=== PATIENT | female | born 1985 | race Caucasian/White ===

== ENCOUNTER 2017-11-26 16:12 | Emergency (ER) | payer OTHER ==
[~2017-11-26] VITALS: Ht 157.5 cm; Wt 81.7 kg
[~2017-11-26 16:12] MED LIST: ACET325 PO; ALBU90OI INH; AMOCLA500 PO; AMOCLA875 PO; AMOX1XR PO; AMOX500 PO; AMPDEX10 PO; AZIT250 PO; Amoxicillin500 MG PO; BENZ100A PO; Benadryl 50 mg50 MG PO; CEPH500; CEPH500 PO; CIPR500 PO; CLON.1 PO; CODACE30 PO; CODGUAEL PO; CYCL10 PO; Cleocin HCl300 MG PO; DEXT10ER PO; DIPH25 PO; DOCU100 PO; DOXY100 PO; ENOX60I SC; FLUR100; HYDACE5 PO; HYDACE5325 PO; HYDHCL25 PO; HYDMOR2 PO; IBUHYD PO; IBUP600 PO; IBUP800 PO; KETO10 PO; LORA2 PO; MAGIC MOUTHWASH; MULVITMINE; NAPR550 PO; ONDA4 PO; OXYACE5T PO; OXYACE7.5T PO; OXYC5 PO; PENVK500 PO; PHENA200 PO; PRED20 PO; PRENATAL FORMU1 EAC1 PO; PROC10 PO; PROM25 PO; PROP10 PO; Pseudoephedrine30 MG PO; RXLORA1 PO; RXNAPNA550 PO; SERT100 PO; SERT50; SULTRIDS PO; TAMS.4ER PO; WARF2 PO; WARF5 PO; Zithromax250 MG PO
[2017-11-26] MEDS ORDERED: IBUP800 (16:34)
[2017-11-26 16:54] LABS: Source, Urine Clean Catch
[2017-11-26 17:16] LABS: Appearance, Urine Clear (Clear); Bilirubin, Urine Neg (Neg); Blood, Urine Neg (Neg); Color, Urine Yellow (P-Yellow); Glucose Qualitative, Urine Neg (Neg); Ketones, Urine Neg (Neg); Leukocyte Esterase, Urine Neg (Neg); Nitrite, Urine Neg (Neg); Protein, Urine 1+ (Neg); Specific Gravity, Urine 1.015 (1.003-1.022); Urobilinogen, Urine NORM (Normal); pH, Urine 6.5 (5.0-8.0)
[2017-11-26 17:27] LABS: BASOPHILS ABSOLUTE AUTO 0.02 K/mm3 (0.00-0.23); BASOPHILS PERCENT AUTO 0 % (0-2); EOSINOPHILS PERCENT AUTO 4 % (0-6); Hematocrit 44.9 % (33.0-51.0); Hemoglobin 15.5 g/dL (11.5-16.0); IMMATURE GRAN ABSOLUTE AUTO 0.03 K/mm3 (0.00-0.10); IMMATURE GRAN PERCENT AUTO 0 % (0-1); LYMPHOCYTES PERCENT AUTO 24 % (21-46); MONOCYTES PERCENT AUTO 6 % (4-13); Mean Corpuscular HGB 33.3 pg (26.0-34.0); Mean Corpuscular HGB Conc 34.5 g/dL (31.5-36.5); Mean Corpuscular Volume 97 fL (80-100); Mean Platelet Volume 10.3 fL (9.1-12.4); NEUTROPHILS ABSOLUTE AUTO 5.23 K/mm3 (1.96-9.15); NEUTROPHILS PERCENT AUTO 65 % (41-73); Platelet Count 186 K/mm3 (150-400); RDW Coefficient Variation 12.6 % (11.7-14.2); RDW Standard Deviation 44.8 fL (35.1-46.3); Red Blood Cell Count 4.65 M/mm3 (3.80-5.20); White Blood Cell Count 7.98 K/mm3 (4.00-11.30)
[2017-11-26 17:42] LABS: Alanine Aminotransfer (ALT/SGP 69 U/L (12-78); Albumin, Blood 3.7 g/dL (3.4-5.0); Albumin/Globulin Ratio 0.8 (0.8-1.8); Alk Phos 154 U/L (50-136); Anion Gap 11 mmol/L (6-16); Aspartate Aminotrans (AST/SGOT 76 U/L (12-37); Bilirubin, Total 0.7 mg/dL (0.1-1.0); Blood Urea Nitrogen 12 mg/dL (8-24); Bun/Creatinine Ratio 20.6 (12.0-20.0); CO2, Blood 25 mmol/L (21-32); Chloride, Blood 105 mmol/L (98-108); Creatinine, Blood 0.58 mg/dL (0.40-1.00); Globulin, Blood 4.9 g/dL (2.2-4.0); Glomerular Filtration Rate >60 (60-); Glucose, Blood 87 mg/dL (70-99); Potassium, Blood 3.4 mmol/L (3.5-5.5); Sodium, Blood 141 mmol/L (136-145); Total Protein, Blood 8.6 g/dL (6.4-8.2)
[2017-11-26] MEDS ORDERED: Ultram50 MG PO (19:39)
[2017-11-26] MEDS ORDERED: IBUP800 PO (19:39)
== END 2017-11-26 20:00 | disposition home or self-care (01) ==
LOC: ER 16:12
PROVIDERS: Emergency Medicine; Physician Assistant
DX: N83.202 Unspecified ovarian cyst, left side (principal); Z79.891 Long term (current) use of opiate analgesic; Z87.442 Personal history of urinary calculi; F17.210 Nicotine dependence, cigarettes, uncomplicated
CPT/HCPCS: 36415; 76830; 76856; 80053; 81025; 84703; 85025; 96374; 96375; 99284; J1885; J2405

== ENCOUNTER → 2018-01-04 | Outpatient (CLI) | payer OTHER ==
[~2018-01-04] MED LIST changes: +IBUP800; +Ultram50 MG PO
== END ==
LOC: LAB SHORT 17:16 → LAB 17:16
DX: N89.8 Other specified noninflammatory disorders of vagina (principal)
CPT/HCPCS: 87070; 87205

== ENCOUNTER → 2018-01-12 | Outpatient (CLI) | payer OTHER ==
[2018-01-16 12:22] LABS: HPV Genotype 16 Not Detected (NOTDET); HPV Genotype 18 Not Detected (NOTDET)
[2018-01-22 08:44] LABS: HPV High Risk Other Not Detected (NOTDET)
[2018-01-23 07:09] LABS: Source CERVICAL
== END ==
LOC: LAB 16:39 → LAB SHORT 16:39
PROVIDERS: Registered Nurse Community Health
DX: Z12.4 Encounter for screening for malignant neoplasm of cervix (principal)
CPT/HCPCS: 87624; G0123

== ENCOUNTER 2018-01-13 13:09 | Emergency (ER) | payer OTHER ==
[~2018-01-13] VITALS: Ht 157.5 cm; Wt 86.2 kg
== END 2018-01-13 14:58 | disposition left against medical advice (07) ==
LOC: ER 13:09
DX: Z53.21 Procedure and treatment not carried out due to patient leaving prior to being seen by health care provider (principal)

== ENCOUNTER 2018-02-04 10:42 | Emergency (ER) | payer OTHER ==
[~2018-02-04] VITALS: Ht 157.5 cm; Wt 83.9 kg
[2018-02-04 11:59] LABS: BASOPHILS ABSOLUTE AUTO 0.02 K/mm3 (0.00-0.23); BASOPHILS PERCENT AUTO 0 % (0-2); EOSINOPHILS ABSOLUTE AUTO 0.35 K/mm3 (0.00-0.68); EOSINOPHILS PERCENT AUTO 5 % (0-6); Hematocrit 43.2 % (33.0-51.0); Hemoglobin 14.8 g/dL (11.5-16.0); IMMATURE GRAN ABSOLUTE AUTO 0.02 K/mm3 (0.00-0.10); IMMATURE GRAN PERCENT AUTO 0 % (0-1); LYMPHOCYTES ABSOLUTE AUTO 1.33 K/mm3 (0.84-5.20); LYMPHOCYTES PERCENT AUTO 20 % (21-46); MONOCYTES ABSOLUTE AUTO 0.42 K/mm3 (0.16-1.47); MONOCYTES PERCENT AUTO 6 % (4-13); Mean Corpuscular HGB 33.4 pg (26.0-34.0); Mean Corpuscular HGB Conc 34.3 g/dL (31.5-36.5); Mean Corpuscular Volume 98 fL (80-100); Mean Platelet Volume 10.1 fL (9.1-12.4); NEUTROPHILS ABSOLUTE AUTO 4.68 K/mm3 (1.96-9.15); NEUTROPHILS PERCENT AUTO 69 % (41-73); Platelet Count 199 K/mm3 (150-400); RDW Coefficient Variation 12.3 % (11.7-14.2); RDW Standard Deviation 44.8 fL (35.1-46.3); Red Blood Cell Count 4.43 M/mm3 (3.80-5.20); White Blood Cell Count 6.82 K/mm3 (4.00-11.30)
[2018-02-04 12:00] LABS: Appearance, Urine Cloudy (Clear); Bilirubin, Urine Neg (Neg); Blood, Urine 5+ (Neg); Color, Urine Amber (P-Yellow); Glucose Qualitative, Urine Neg (Neg); Ketones, Urine Neg (Neg); Leukocyte Esterase, Urine 1+ (Neg); Nitrite, Urine Neg (Neg); Protein, Urine 2+ (Neg); Urobilinogen, Urine 2+ (Normal)
[2018-02-04 12:10] LABS: Red Blood Cells, Urine TNTC /hpf (0-2)
[2018-02-04 12:11] LABS: Amorphous Light (0-Heavy); Bacteria Many /hpf; Squamous Epithelial Cells Few /hpf (Few)
[2018-02-04 12:18] LABS: Alanine Aminotransfer (ALT/SGP 67 U/L (12-78); Albumin, Blood 3.2 g/dL (3.4-5.0); Albumin/Globulin Ratio 0.7 (0.8-1.8); Alk Phos 107 U/L (50-136); Anion Gap 3 mmol/L (6-16); Aspartate Aminotrans (AST/SGOT 76 U/L (12-37); Bilirubin, Total 0.8 mg/dL (0.1-1.0); Blood Urea Nitrogen 11 mg/dL (8-24); Bun/Creatinine Ratio 17.8 (12.0-20.0); CO2, Blood 30 mmol/L (21-32); Calcium, Blood 8.8 mg/dL (8.5-10.1); Chloride, Blood 108 mmol/L (98-108); Creatinine, Blood 0.62 mg/dL (0.40-1.00); Globulin, Blood 4.5 g/dL (2.2-4.0); Glomerular Filtration Rate >60 (60-); Glucose, Blood 129 mg/dL (70-99); Sodium, Blood 141 mmol/L (136-145); Total Protein, Blood 7.7 g/dL (6.4-8.2)
== END 2018-02-04 12:05 | disposition left against medical advice (07) ==
LOC: ER 10:42
PROVIDERS: Emergency Medicine
DX: Z53.21 Procedure and treatment not carried out due to patient leaving prior to being seen by health care provider (principal)
CPT/HCPCS: 36415; 80053; 81001; 81025; 83690; 85025; 87086; 99283; J2405

== ENCOUNTER → 2018-03-30 | Outpatient (CLI) | payer OTHER ==
[2018-04-04 01:12] LABS: CHLAMYDIA TRACHOMATIS, NAA Negative (Negative); NEISSERIA GONORRHOEAE, NAA Negative (Negative)
== END ==
LOC: LAB SHORT 18:45 → LAB 18:45
PROVIDERS: Registered Nurse Community Health
DX: Z11.3 Encounter for screening for infections with a predominantly sexual mode of transmission (principal); Z34.81 Encounter for supervision of other normal pregnancy, first trimester
CPT/HCPCS: 87491; 87591

== ENCOUNTER → 2018-05-23 | Outpatient (CLI) | payer OTHER ==
[2018-05-23 20:00] LABS: International Normalized Ratio 1.01; Prothrombin Time Results 10.4 Sec (9.7-11.5)
== END ==
LOC: LAB SHORT 17:11 → LAB 17:11
PROVIDERS: Registered Nurse Community Health
DX: Z34.82 Encounter for supervision of other normal pregnancy, second trimester (principal)
CPT/HCPCS: 85610

== ENCOUNTER → 2018-10-12 | Outpatient (CLI) | payer OTHER ==
[~2018-10-12] MED LIST changes: +ENOX40I SC; +PRENATAL TABLE1 EAC1 PO
== END ==
LOC: LAB SHORT 11:00 → LAB 11:00
DX: O9A.22 Injury, poisoning and certain other consequences of external causes complicating childbirth (principal); T14.8XXA Other injury of unspecified body region, initial encounter
CPT/HCPCS: 87070; 87075; 87081; 87205; 87653

== ENCOUNTER 2018-10-17 19:13 | Inpatient (IN) | payer OTHER ==
[~2018-10-17] VITALS: Ht 157.5 cm; Wt 90.9 kg
[~2018-10-17 19:13] MED LIST changes: -ENOX40I SC; -PRENATAL TABLE1 EAC1 PO
[2018-10-17 19:42] LABS: Source, Urine Clean Catch
[2018-10-17 19:46] LABS: Bilirubin, Urine Neg (Neg); Blood, Urine 5+ (Neg); Glucose Qualitative, Urine Neg (Neg); Ketones, Urine Neg (Neg); Leukocyte Esterase, Urine 2+ (Neg); Nitrite, Urine Neg (Neg); Protein, Urine 2+ (Neg); Urobilinogen, Urine NORM (Normal); pH, Urine 6.5 (5.0-8.0)
[2018-10-17 19:51] LABS: Appearance, Urine Hazy (Clear); Color, Urine Yellow (P-Yellow)
[2018-10-17 19:52] LABS: Red Blood Cells, Urine 25-50 /hpf (0-2); Squamous Epithelial Cells Mod /hpf (Few)
[2018-10-17 19:53] LABS: Bacteria Few /hpf
[2018-10-17 22:34] LABS: BASOPHILS ABSOLUTE AUTO 0.02 K/mm3 (0.00-0.23); BASOPHILS PERCENT AUTO 0 % (0-2); EOSINOPHILS ABSOLUTE AUTO 0.13 K/mm3 (0.00-0.68); EOSINOPHILS PERCENT AUTO 1 % (0-6); Hematocrit 42.8 % (33.0-51.0); Hemoglobin 14.9 g/dL (11.5-16.0); IMMATURE GRAN ABSOLUTE AUTO 0.11 K/mm3 (0.00-0.10); IMMATURE GRAN PERCENT AUTO 1 % (0-1); LYMPHOCYTES ABSOLUTE AUTO 1.11 K/mm3 (0.84-5.20); LYMPHOCYTES PERCENT AUTO 10 % (21-46); MONOCYTES ABSOLUTE AUTO 0.67 K/mm3 (0.16-1.47); MONOCYTES PERCENT AUTO 6 % (4-13); Mean Corpuscular HGB 36.8 pg (26.0-34.0); Mean Corpuscular HGB Conc 34.8 g/dL (31.5-36.5); Mean Corpuscular Volume 106 fL (80-100); Mean Platelet Volume 10.2 fL (9.1-12.4); NEUTROPHILS ABSOLUTE AUTO 9.28 K/mm3 (1.96-9.15); NEUTROPHILS PERCENT AUTO 82 % (41-73); Platelet Count 180 K/mm3 (150-400); RDW Coefficient Variation 14.1 % (11.7-14.2); RDW Standard Deviation 54.1 fL (35.1-46.3); Red Blood Cell Count 4.05 M/mm3 (3.80-5.20); White Blood Cell Count 11.32 K/mm3 (4.00-11.30)
[2018-10-17 22:36] LABS: International Normalized Ratio 1.01; Prothrombin Time Results 10.4 Sec (9.7-11.5)
--- NOTE | 2018-10-18 00:07 | NUR ---
REPORT TO ALMA RUANO.
[2018-10-18 05:30] LABS: BASOPHILS ABSOLUTE AUTO 0.04 K/mm3 (0.00-0.23); BASOPHILS PERCENT AUTO 0 % (0-2); EOSINOPHILS ABSOLUTE AUTO 0.03 K/mm3 (0.00-0.68); EOSINOPHILS PERCENT AUTO 0 % (0-6); Hematocrit 36.8 % (33.0-51.0); Hemoglobin 12.4 g/dL (11.5-16.0); IMMATURE GRAN ABSOLUTE AUTO 0.13 K/mm3 (0.00-0.10); IMMATURE GRAN PERCENT AUTO 1 % (0-1); LYMPHOCYTES ABSOLUTE AUTO 1.17 K/mm3 (0.84-5.20); LYMPHOCYTES PERCENT AUTO 7 % (21-46); MONOCYTES ABSOLUTE AUTO 1.02 K/mm3 (0.16-1.47); MONOCYTES PERCENT AUTO 6 % (4-13); Mean Corpuscular HGB 35.8 pg (26.0-34.0); Mean Corpuscular HGB Conc 33.7 g/dL (31.5-36.5); Mean Corpuscular Volume 106 fL (80-100); Mean Platelet Volume 10.5 fL (9.1-12.4); NEUTROPHILS ABSOLUTE AUTO 14.92 K/mm3 (1.96-9.15); NEUTROPHILS PERCENT AUTO 86 % (41-73); Platelet Count 166 K/mm3 (150-400); RDW Coefficient Variation 14.2 % (11.7-14.2); RDW Standard Deviation 54.7 fL (35.1-46.3); Red Blood Cell Count 3.46 M/mm3 (3.80-5.20); White Blood Cell Count 17.31 K/mm3 (4.00-11.30)
--- NOTE | 2018-10-18 14:07 | NUR ---
PT CALLS RN TO THE ROOM WITH C/O LEFT LOWER QUADRANT PAIN. RECENT N/V AND EMESIS, PAIN IN CALVES, TINGLING DOWN BOTH LEGS, REPORTS MILD UPPER EPIGASTRIC DISCOMFORT AND NOW SAYS SHE FEELS S.O.B. DISCUSSED SORE MUSCLES FROM LABOR AND NOW FROM EMESIS. DISCUSSED LOW FAT DIET EVEN THOUHG PATIENT HAS BEEN EATING HIGH FATTY FOODS. HARDIN'S TEST DONE, PT DENIES PAIN IN HER CALF BUT REPORTS PAIN IN LEFT KNEE WITH TEST. FOAM PAD PUT ON BED TO RELIEVE BACK PAIN AND LEG PAIN. UPDATE TO Tejinder CONTEH CNM.
--- NOTE | 2018-10-18 14:46 | NUR ---
PT AWAKENS FROM A SHORT NAP WITH REPORT OF 0 PAIN, STATES "i FEEL SO MUCH BETTER". BABY REMAINS WITH NURSES AND PT ENCOURAGED TO REST. PT DESIRES TO TRY TO SLEEP MORE.
--- NOTE | 2018-10-18 17:11 | NUR ---
OOB TO SHOWER
--- NOTE | 2018-10-18 17:41 | NUR ---
PT R/T ROOM FROM AMBULATING IN THE HALLS. REPORTS EXPLOSIVE DIARREAH AND EMESIS. CONCERNED SHE HAS THE FLU. NO CHILLS OR FEVER NOTED. DISCUSSED POSSIBLE S/S OF GALLBLADDER PROBLEMS. PRINTED OFF INFORMATION ABOUT GALLBLADDER S/S, WHAT TO WATCH FOR, WHAT FOODS TO AVOID.
[2018-10-19 06:04] LABS: Alanine Aminotransfer (ALT/SGP 91 U/L (12-78); Albumin, Blood 2.5 g/dL (3.4-5.0); Albumin/Globulin Ratio 0.7 (0.8-1.8); Alk Phos 140 U/L (50-136); Anion Gap 8 mmol/L (6-16); Aspartate Aminotrans (AST/SGOT 107 U/L (12-37); Bilirubin, Total 0.8 mg/dL (0.1-1.0); Blood Urea Nitrogen 17 mg/dL (8-24); Bun/Creatinine Ratio 26.2 (12.0-20.0); CO2, Blood 21 mmol/L (21-32); Calcium, Blood 7.5 mg/dL (8.5-10.1); Chloride, Blood 111 mmol/L (98-108); Creatinine, Blood 0.65 mg/dL (0.40-1.00); Globulin, Blood 3.7 g/dL (2.2-4.0); Glomerular Filtration Rate >60 (60-); Glucose, Blood 93 mg/dL (70-99); Potassium, Blood 3.9 mmol/L (3.5-5.5); Sodium, Blood 140 mmol/L (136-145); Total Protein, Blood 6.2 g/dL (6.4-8.2)
[2018-10-19] MEDS ORDERED: IBUP800 PO (13:09)
[2018-10-19] MEDS ORDERED: ENOX40I SC (13:09)
[2018-10-19] MEDS ORDERED: PRENATAL TABLE1 EAC1 PO (13:09)
--- NOTE | 2018-10-19 14:22 | NUR ---
script were called in to [facility] pharmacy at 1349 to radha. reports will be ready in 2 hours
--- NOTE | 2018-10-19 14:23 | NUR ---
ready to dc home, following up with tim landaverde in [address] paige was here to see pt will follow up with him in 2-4 weeks, plan to remove pt gallbladder after pt is off her lovenox.
== END 2018-10-19 14:40 | disposition home or self-care (01) | DRG 807 ==
LOC: OBS 19:13 → BC 19:13 → OBS 21:41 → BC 21:43
PROVIDERS: ADMIT Registered Nurse Community Health
PROC: 10E0XZZ Delivery of Products of Conception, External Approach (ICD-10-PCS; principal; 2018-10-17)
DX: O80 Encounter for full-term uncomplicated delivery (principal); Z37.0 Single live birth; Z3A.37 37 weeks gestation of pregnancy
CPT/HCPCS: 36415; 76705; 80053; 81001; 85025; 85610; 85730; 86850; 86900; 86901; J1650; J1885; J2210; J2405; J2590; J3010; J7120

== ENCOUNTER → 2018-10-17 | Outpatient (CLI) | payer OTHER | LOC: LAB 11:40 → LAB SHORT 11:40 | DX: R82.998 Other abnormal findings in urine (principal) | CPT/HCPCS: 87086 ==

== ENCOUNTER → 2018-11-23 | Outpatient (CLI) | payer OTHER ==
[~2018-11-23] MED LIST changes: +ENOX40I SC; +PRENATAL TABLE1 EAC1 PO
== END ==
LOC: LAB 12:25 → LAB SHORT 12:25
DX: L72.3 Sebaceous cyst (principal)
CPT/HCPCS: 87070; 87205

== ENCOUNTER 2018-11-29 21:14 | Emergency (ER) | payer OTHER ==
[~2018-11-29] VITALS: Ht 157.5 cm; Wt 81.7 kg
[2018-11-29 21:48] LABS: BASOPHILS ABSOLUTE AUTO 0.03 K/mm3 (0.00-0.23); BASOPHILS PERCENT AUTO 0 % (0-2); EOSINOPHILS ABSOLUTE AUTO 0.34 K/mm3 (0.00-0.68); EOSINOPHILS PERCENT AUTO 5 % (0-6); Hematocrit 41.6 % (33.0-51.0); Hemoglobin 14.3 g/dL (11.5-16.0); IMMATURE GRAN ABSOLUTE AUTO 0.02 K/mm3 (0.00-0.10); IMMATURE GRAN PERCENT AUTO 0 % (0-1); LYMPHOCYTES ABSOLUTE AUTO 1.75 K/mm3 (0.84-5.20); LYMPHOCYTES PERCENT AUTO 24 % (21-46); MONOCYTES ABSOLUTE AUTO 0.47 K/mm3 (0.16-1.47); MONOCYTES PERCENT AUTO 7 % (4-13); Mean Corpuscular HGB Conc 34.4 g/dL (31.5-36.5); Mean Corpuscular Volume 102 fL (80-100); Mean Platelet Volume 9.8 fL (9.1-12.4); NEUTROPHILS ABSOLUTE AUTO 4.59 K/mm3 (1.96-9.15); NEUTROPHILS PERCENT AUTO 64 % (41-73); Platelet Count 174 K/mm3 (150-400); RDW Coefficient Variation 11.8 % (11.7-14.2); RDW Standard Deviation 43.8 fL (35.1-46.3); Red Blood Cell Count 4.08 M/mm3 (3.80-5.20)
[2018-11-29 22:12] LABS: Alanine Aminotransfer (ALT/SGP 82 U/L (12-78); Albumin, Blood 3.4 g/dL (3.4-5.0); Albumin/Globulin Ratio 0.7 (0.8-1.8); Alk Phos 158 U/L (50-136); Anion Gap 6 mmol/L (6-16); Aspartate Aminotrans (AST/SGOT 75 U/L (12-37); Bilirubin, Total 0.6 mg/dL (0.1-1.0); Blood Urea Nitrogen 14 mg/dL (8-24); Bun/Creatinine Ratio 20.6 (12.0-20.0); CO2, Blood 28 mmol/L (21-32); Calcium, Blood 8.6 mg/dL (8.5-10.1); Chloride, Blood 106 mmol/L (98-108); Creatinine, Blood 0.68 mg/dL (0.40-1.00); Globulin, Blood 4.6 g/dL (2.2-4.0); Glomerular Filtration Rate >60 (60-); Glucose, Blood 87 mg/dL (70-99); Potassium, Blood 3.6 mmol/L (3.5-5.5); Sodium, Blood 140 mmol/L (136-145)
== END 2018-11-29 22:46 | disposition left against medical advice (07) ==
LOC: ER 21:14
PROVIDERS: Emergency Medicine
DX: Z53.21 Procedure and treatment not carried out due to patient leaving prior to being seen by health care provider (principal)
CPT/HCPCS: 36415; 80053; 85025; 86900; 86901; 99281

== ENCOUNTER → 2019-08-08 | Outpatient (CLI) | payer OTHER | END | disposition home or self-care (01) | LOC: LAB SHORT 11:35 → LAB EV 11:35 | DX: L03.211 Cellulitis of face (principal) | CPT/HCPCS: 87070; 87205 ==

== ENCOUNTER 2020-06-21 06:23 | Emergency (ER) | payer OTHER | END 2020-06-21 07:15 | disposition left against medical advice (07) | LOC: ER 06:23 | DX: Z53.21 Procedure and treatment not carried out due to patient leaving prior to being seen by health care provider (principal) ==

== ENCOUNTER 2020-10-14 09:10 | Emergency (ER) | payer OTHER | END 2020-10-14 10:18 | disposition left against medical advice (07) | LOC: ER 09:10 | DX: Z53.21 Procedure and treatment not carried out due to patient leaving prior to being seen by health care provider (principal) ==

== ENCOUNTER 2021-03-02 01:09 | Emergency (ER) | payer OTHER ==
[~2021-03-02] VITALS: Ht 154.9 cm; Wt 74.8 kg
[2021-03-02] MEDS ORDERED: SUBOXONE 8 MG-1 EACH SL (02:53)
[2021-03-02] MEDS ORDERED: Cleocin HCl300 MG PO (04:01)
== END 2021-03-02 04:09 | disposition home or self-care (01) ==
LOC: ER 01:09
DX: N76.4 Abscess of vulva (principal); F17.210 Nicotine dependence, cigarettes, uncomplicated; Z87.442 Personal history of urinary calculi
CPT/HCPCS: 56405; 99283-25; A9270

== ENCOUNTER 2021-04-07 19:45 | Emergency (ER) | payer OTHER ==
[~2021-04-07] VITALS: Ht 154.9 cm; Wt 68.0 kg
[~2021-04-07 19:45] MED LIST changes: +SUBOXONE 8 MG-1 EACH SL
== END 2021-04-08 00:55 | disposition left against medical advice (07) ==
LOC: ER 19:45
DX: M79.89 Other specified soft tissue disorders (principal); Z53.21 Procedure and treatment not carried out due to patient leaving prior to being seen by health care provider
CPT/HCPCS: 99282

== ENCOUNTER → 2021-04-08 | Outpatient (CLI) | payer OTHER ==
[2021-04-10 07:13] LABS: HIV SCREEN 4TH GENERATION WRFX Non Reactive (Non Reactive)
== END ==
LOC: EDSTATUS 14:08 → LAB 21:36 → LAB SHORT 21:36
PROVIDERS: Physician Assistant
DX: N39.0 Urinary tract infection, site not specified (principal)
CPT/HCPCS: 87086; 87389

== ENCOUNTER 2021-04-10 19:12 | Emergency (ER) | payer OTHER ==
[~2021-04-10] VITALS: Ht 160 cm; Wt 68.0 kg
[2021-04-10 20:47] LABS: Hemoglobin 11.1 g/dL (11.5-16.0); Mean Corpuscular HGB 33.4 pg (26.0-34.0); Mean Corpuscular HGB Conc 34.7 g/dL (31.5-36.5); Mean Corpuscular Volume 96 fL (80-100); Mean Platelet Volume 10.8 fL (9.1-12.4); Platelet Count 70 K/mm3 (150-400); RDW Coefficient Variation 13.9 % (11.7-14.2); RDW Standard Deviation 49.6 fL (35.1-46.3); Red Blood Cell Count 3.32 M/mm3 (3.80-5.20); White Blood Cell Count 5.83 K/mm3 (4.00-11.30)
[2021-04-10 21:06] LABS: Alanine Aminotransfer (ALT/SGP 43 U/L (12-78); Albumin, Blood 2.4 g/dL (3.4-5.0); Albumin/Globulin Ratio 0.5 (0.8-1.8); Alk Phos 144 U/L (50-136); Anion Gap 6 mmol/L (6-16); Aspartate Aminotrans (AST/SGOT 45 U/L (12-37); Bilirubin, Total 1.4 mg/dL (0.1-1.0); Blood Urea Nitrogen 9 mg/dL (8-24); Bun/Creatinine Ratio 17.8 (12.0-20.0); CO2, Blood 22 mmol/L (21-32); CPK Creatine Kinase 29 U/L (26-193); Chloride, Blood 104 mmol/L (98-108); Creatinine, Blood 0.51 mg/dL (0.40-1.00); Globulin, Blood 4.8 g/dL (2.2-4.0); Glomerular Filtration Rate >60 (60-); Glucose, Blood 162 mg/dL (70-99); Potassium, Blood 3.6 mmol/L (3.5-5.5); Sodium, Blood 132 mmol/L (136-145); Total Protein, Blood 7.2 g/dL (6.4-8.2)
[2021-04-10 21:11] LABS: BAND PERCENT MAN 13 % (0-8); BASOPHILS ABSOLUTE MAN 0.05 K/mm3 (0.00-0.23); BASOPHILS PERCENT MAN 1 % (0-2); EOSINOPHILS ABSOLUTE MAN 0.05 K/mm3 (0.00-0.68); EOSINOPHILS PERCENT MAN 1 % (0-6); LYMPHOCYTES % ATYPICAL MANUAL 2 % (0-0); LYMPHOCYTES ABSOLUTE MAN 0.58 K/mm3 (0.84-5.20); LYMPHOCYTES PERCENT MAN 8 % (21-46); METAMYELOCYTE ABSOLUTE MAN 0.05 K/mm3 (0.00-0.00); METAMYELOCYTE PERCENT MAN 1 % (0-0); MONOCYTES ABSOLUTE MAN 0.11 K/mm3 (0.16-1.47); MONOCYTES PERCENT MAN 2 % (4-13); NEUTROPHILS ABSOLUTE MAN 4.95 K/mm3 (1.96-9.15); SEG NEUTROPHILS PERCENT MAN 72 % (41-73); TOTAL CELLS COUNTED 100
[2021-04-10 21:23] LABS: U Amphetamine Screen DETECTED; U Buprenorphine Screen Not Detected; U Cannabinoids Screen DETECTED; U Methadone Screen Not Detected; U Methamphetamine Screen DETECTED; U Opiates Screen DETECTED; U Oxycodone Screen Not Detected; U Phencyclidine Screen Not Detected; U Propoxyphene Screen Not Detected
[2021-04-10 21:24] LABS: U Barbituate Screen Not Detected; U Benzodiazapine Screen Not Detected; U Cocaine Screen Not Detected
== END 2021-04-10 22:09 | disposition home or self-care (01) ==
LOC: ER 19:12
PROVIDERS: Emergency Medicine
DX: M25.511 Pain in right shoulder (principal); F15.10 Other stimulant abuse, uncomplicated; F17.210 Nicotine dependence, cigarettes, uncomplicated
CPT/HCPCS: 36415; 73030; 80053; 82550; 85025; 96374; 99284-25; J1885

== ENCOUNTER → 2021-04-14 | Outpatient (CLI) | payer OTHER | END | disposition home or self-care (01) | LOC: LAB 15:01 → LAB SHORT 15:01 | DX: M25.511 Pain in right shoulder (principal); L02.413 Cutaneous abscess of right upper limb | CPT/HCPCS: 87070; 87075; 87077; 87147; 87186; 87205 ==

== ENCOUNTER 2022-12-26 06:04 | Emergency (ER) | payer OTHER ==
[~2022-12-26] VITALS: Ht 152.4 cm; Wt 59.0 kg
[~2022-12-26 06:04] MED LIST changes: +Ativan1 MG PO; +BUPRENO-NALOX1 EAC2 SL; +CATAPRES0.1 MG PO; +Lasix20 MG PO; +NARCAN4 M1; +NEURONTIN300 MG PO; +POTCHL20ER PO
[2022-12-26 06:53] LABS: BASOPHILS ABSOLUTE AUTO 0.03 K/mm3 (0.00-0.23); BASOPHILS PERCENT AUTO 1 % (0-2); EOSINOPHILS PERCENT AUTO 4 % (0-6); Hematocrit 27.5 % (33.0-51.0); Hemoglobin 9.8 g/dL (11.5-16.0); IMMATURE GRAN ABSOLUTE AUTO 0.01 K/mm3 (0.00-0.10); IMMATURE GRAN PERCENT AUTO 0 % (0-1); LYMPHOCYTES ABSOLUTE AUTO 1.49 K/mm3 (0.84-5.20); LYMPHOCYTES PERCENT AUTO 31 % (21-46); MONOCYTES PERCENT AUTO 10 % (4-13); Mean Corpuscular HGB 34.1 pg (26.0-34.0); Mean Corpuscular HGB Conc 35.6 g/dL (31.5-36.5); Mean Corpuscular Volume 96 fL (80-100); Mean Platelet Volume 10.4 fL (9.1-12.4); NEUTROPHILS ABSOLUTE AUTO 2.61 K/mm3 (1.96-9.15); NEUTROPHILS PERCENT AUTO 54 % (41-73); Platelet Count 66 K/mm3 (150-400); RDW Coefficient Variation 14.7 % (11.7-14.2); RDW Standard Deviation 51.2 fL (35.1-46.3); Red Blood Cell Count 2.87 M/mm3 (3.80-5.20); White Blood Cell Count 4.84 K/mm3 (4.00-11.30)
[2022-12-26 07:22] LABS: Albumin, Blood 2.1 g/dL (3.4-5.0); Albumin/Globulin Ratio 0.4 (0.8-1.8); Bilirubin, Total 2.3 mg/dL (0.1-1.0); Bun/Creatinine Ratio 25.4 (12.0-20.0); Calcium, Blood 8.2 mg/dL (8.5-10.1); Creatinine, Blood 0.79 mg/dL (0.40-1.00); Potassium, Blood 2.4 mmol/L (3.5-5.5); Total Protein, Blood 7.1 g/dL (6.4-8.2)
[2022-12-26 10:20] LABS: Chloride (POC) 95 mmol/L (98-108); Creatinine (POC) 0.8 mg/dL (0.6-1.0); Glucose (ISTAT POC) 94 mg/dL (70-99); Hemoglobin (POC) 11.2 g/dL (12.0-16.0); Potassium (POC) 2.9 mmol/L (3.5-5.5); Sodium (POC) 138 mmol/L (135-148); Total CO2 (POC) 30 mmol/L (21-32)
[2022-12-26] MEDS ORDERED: NALOXONE HC1 MG/1 ML IV (10:32)
[2022-12-26] MEDS ORDERED: POTCHL20ER PO (10:32)
== END 2022-12-26 10:35 | disposition home or self-care (01) ==
LOC: ER 06:04
PROVIDERS: Emergency Medicine
DX: T40.411A Poisoning by fentanyl or fentanyl analogs, accidental (unintentional), initial encounter (principal); F11.10 Opioid abuse, uncomplicated; E87.6 Hypokalemia; F17.210 Nicotine dependence, cigarettes, uncomplicated
CPT/HCPCS: 36415; 80047; 80053; 84484; 84703; 85014; 85025; 93005; 93010; A9270

== ENCOUNTER 2023-04-20 18:43 | Emergency (ER) | payer OTHER ==
[~2023-04-20] VITALS: Ht 152.4 cm; Wt 59.0 kg
[~2023-04-20 18:43] MED LIST changes: +BUPRENORPHINE HC8 MG SL; +K-Dur20 MEQ PO; +MAGNESIUM OXID500 MG PO; +NALOXONE HC1 MG/1 ML IV; +SOAANZ20 M3 PO; +SPIRONOLACTONE25 MG PO
[2023-04-20 19:47] LABS: BASOPHILS ABSOLUTE AUTO 0.02 K/mm3 (0.00-0.23); BASOPHILS PERCENT AUTO 1 % (0-2); EOSINOPHILS ABSOLUTE AUTO 0.11 K/mm3 (0.00-0.68); EOSINOPHILS PERCENT AUTO 4 % (0-6); Hematocrit 26.2 % (33.0-51.0); Hemoglobin 8.4 g/dL (11.5-16.0); IMMATURE GRAN ABSOLUTE AUTO 0.01 K/mm3 (0.00-0.10); IMMATURE GRAN PERCENT AUTO 0 % (0-1); LYMPHOCYTES ABSOLUTE AUTO 0.82 K/mm3 (0.84-5.20); LYMPHOCYTES PERCENT AUTO 27 % (21-46); MONOCYTES ABSOLUTE AUTO 0.33 K/mm3 (0.16-1.47); MONOCYTES PERCENT AUTO 11 % (4-13); Mean Corpuscular HGB 29.9 pg (26.0-34.0); Mean Corpuscular HGB Conc 32.1 g/dL (31.5-36.5); Mean Corpuscular Volume 93 fL (80-100); Mean Platelet Volume 10.4 fL (9.1-12.4); NEUTROPHILS ABSOLUTE AUTO 1.76 K/mm3 (1.96-9.15); NEUTROPHILS PERCENT AUTO 58 % (41-73); Platelet Count 70 K/mm3 (150-400); RDW Coefficient Variation 15.7 % (11.7-14.2); RDW Standard Deviation 53.4 fL (35.1-46.3); Red Blood Cell Count 2.81 M/mm3 (3.80-5.20); White Blood Cell Count 3.05 K/mm3 (4.00-11.30)
[2023-04-20 20:07] LABS: Albumin, Blood 1.9 g/dL (3.4-5.0); Albumin/Globulin Ratio 0.4 (0.8-1.8); Bilirubin, Total 0.9 mg/dL (0.1-1.0); Bun/Creatinine Ratio 24.2 (12.0-20.0); Calcium, Blood 7.9 mg/dL (8.5-10.1); Creatinine, Blood 0.87 mg/dL (0.40-1.00); Globulin, Blood 5.1 g/dL (2.2-4.0); Potassium, Blood 3.7 mmol/L (3.5-5.5)
[2023-04-20 22:00] VITALS: BP 109/78
== END 2023-04-20 22:24 | disposition home or self-care (01) ==
LOC: ER 18:43
PROVIDERS: Student in an Organized Health Care Education/Training Program
DX: R60.0 Localized edema (principal); I50.9 Heart failure, unspecified; F17.210 Nicotine dependence, cigarettes, uncomplicated; Z79.899 Other long term (current) drug therapy
CPT/HCPCS: 71046; 80053; 83880; 84484; 85025; 93005; 93010; 99284-25

== ENCOUNTER 2023-05-24 15:12 | Emergency (ER) | payer OTHER ==
[~2023-05-24] VITALS: Ht 152.4 cm; Wt 56.7 kg
[2023-05-24] MEDS ORDERED: METOPROLOL SUCC25 MG PO (17:26)
[2023-05-24] MEDS ORDERED: PRAZOSIN HCL1 M2 PO (17:26)
[2023-05-24] MEDS ORDERED: MULTI-VITAMIN1 EAC2 PO (17:27)
[2023-05-24 17:53] VITALS: BP 100/65
[2023-05-24] MEDS ORDERED: DOXY100 PO (17:56)
[2023-05-24] MEDS ORDERED: CEPH500 PO (17:56)
== END 2023-05-24 17:57 | disposition home or self-care (01) ==
LOC: ER 15:12
DX: M67.472 Ganglion, left ankle and foot (principal); L03.116 Cellulitis of left lower limb; I50.9 Heart failure, unspecified; F90.9 Attention-deficit hyperactivity disorder, unspecified type; M79.7 Fibromyalgia; G89.4 Chronic pain syndrome; B19.20 Unspecified viral hepatitis C without hepatic coma; F15.11 Other stimulant abuse, in remission; F11.11 Opioid abuse, in remission; F17.210 Nicotine dependence, cigarettes, uncomplicated; F10.11 Alcohol abuse, in remission; Z79.899 Other long term (current) drug therapy
CPT/HCPCS: 73630; 99283-25; A9270

== ENCOUNTER 2023-05-27 08:45 | Inpatient (IN) | payer OTHER ==
[~2023-05-27] VITALS: Ht 152.4 cm; Wt 54.4 kg
[~2023-05-27 08:45] MED LIST changes: +METOPROLOL SUCC25 MG PO; +MULTI-VITAMIN1 EAC2 PO; +PRAZOSIN HCL1 M2 PO
[2023-05-27] MEDS ORDERED: [UNRECOGNIZED DRUG - CODE] PO (10:11)
[2023-05-27 10:58] LABS: BASOPHILS ABSOLUTE AUTO 0.01 K/mm3 (0.00-0.23); BASOPHILS PERCENT AUTO 0 % (0-2); EOSINOPHILS ABSOLUTE AUTO 0.25 K/mm3 (0.00-0.68); EOSINOPHILS PERCENT AUTO 5 % (0-6); Hematocrit 29.4 % (33.0-51.0); Hemoglobin 9.9 g/dL (11.5-16.0); IMMATURE GRAN ABSOLUTE AUTO 0.01 K/mm3 (0.00-0.10); IMMATURE GRAN PERCENT AUTO 0 % (0-1); LYMPHOCYTES ABSOLUTE AUTO 0.98 K/mm3 (0.84-5.20); LYMPHOCYTES PERCENT AUTO 19 % (21-46); MONOCYTES ABSOLUTE AUTO 0.42 K/mm3 (0.16-1.47); MONOCYTES PERCENT AUTO 8 % (4-13); Mean Corpuscular HGB 31.1 pg (26.0-34.0); Mean Corpuscular HGB Conc 33.7 g/dL (31.5-36.5); Mean Corpuscular Volume 93 fL (80-100); Mean Platelet Volume 12.4 fL (9.1-12.4); NEUTROPHILS ABSOLUTE AUTO 3.39 K/mm3 (1.96-9.15); NEUTROPHILS PERCENT AUTO 67 % (41-73); Platelet Count 59 K/mm3 (150-400); RDW Coefficient Variation 17.8 % (11.7-14.2); RDW Standard Deviation 61.1 fL (35.1-46.3); Red Blood Cell Count 3.18 M/mm3 (3.80-5.20); White Blood Cell Count 5.06 K/mm3 (4.00-11.30)
[2023-05-27 11:13] LABS: Albumin, Blood 2.5 g/dL (3.4-5.0); Albumin/Globulin Ratio 0.4 (0.8-1.8); Bilirubin, Total 1.3 mg/dL (0.1-1.0); Bun/Creatinine Ratio 39.5 (12.0-20.0); Calcium, Blood 8.5 mg/dL (8.5-10.1); Creatinine, Blood 0.99 mg/dL (0.40-1.00); Globulin, Blood 5.6 g/dL (2.2-4.0); Potassium, Blood 3.8 mmol/L (3.5-5.5); Total Protein, Blood 8.1 g/dL (6.4-8.2)
[2023-05-27 12:18] LABS: U Amphetamine Screen Not Detected; U Barbituate Screen Not Detected; U Benzodiazapine Screen Not Detected; U Buprenorphine Screen DETECTED; U Cannabinoids Screen DETECTED; U Cocaine Screen Not Detected; U Methadone Screen Not Detected; U Methamphetamine Screen Not Detected; U Opiates Screen Not Detected; U Oxycodone Screen Not Detected; U Phencyclidine Screen Not Detected; U Propoxyphene Screen Not Detected
[2023-05-27 15:36] VITALS: BP 95/60
[2023-05-27] MEDS ORDERED: POTCHL20ER PO (16:48)
[2023-05-27] MEDS ORDERED: MAVYRET 100-401 EAC1 PO (16:50)
--- NOTE | 2023-05-27 18:59 | NUR ---
THIS RN SPOKE WITH DR. ULZ OVER THE PHONE. DR. LUZ SAID HE PLANS ON SEEING THE PATIENT LATER TONIGHT AND THAT SHE CAN EAT DINNER. A DIET WAS ORDERED FOR HER. ADMISSION COMPLETE. PAIN MANAGED PER EMAR
[2023-05-27 19:44] VITALS: BP 101/62
--- NOTE | 2023-05-28 04:52 | NUR ---
SHIFT SUMMARY ADMITTED FOR CELLULITIS OF LEFT FOOT. FULL CODE. CONTACT PRECAUTIONS FOR MRSA OF BODY FLUID. PLAN IS FOR POSSIBLE PODIATRY SURGERY ON TUESDAY. XRAY REVEALS SUBACUTE FRACTURE OF 5TH TOE AND POSSIBLE FOREIGN BODY IN FOOT. SHE IS ON TX FOR HEP C. HX OF HEPATITIS, LIVER FAILURE, IV DRUG USE, CHF. SHE IS ON SUBOXONE.
[2023-05-28 05:30] VITALS: BP 112/91
[2023-05-28 06:11] LABS: BASOPHILS ABSOLUTE AUTO 0.02 K/mm3 (0.00-0.23); BASOPHILS PERCENT AUTO 1 % (0-2); EOSINOPHILS ABSOLUTE AUTO 0.23 K/mm3 (0.00-0.68); EOSINOPHILS PERCENT AUTO 6 % (0-6); Hematocrit 26.3 % (33.0-51.0); Hemoglobin 8.6 g/dL (11.5-16.0); IMMATURE GRAN ABSOLUTE AUTO 0.01 K/mm3 (0.00-0.10); IMMATURE GRAN PERCENT AUTO 0 % (0-1); LYMPHOCYTES ABSOLUTE AUTO 0.84 K/mm3 (0.84-5.20); LYMPHOCYTES PERCENT AUTO 23 % (21-46); MONOCYTES ABSOLUTE AUTO 0.38 K/mm3 (0.16-1.47); MONOCYTES PERCENT AUTO 10 % (4-13); Mean Corpuscular HGB 30.6 pg (26.0-34.0); Mean Corpuscular HGB Conc 32.7 g/dL (31.5-36.5); Mean Corpuscular Volume 94 fL (80-100); NEUTROPHILS ABSOLUTE AUTO 2.26 K/mm3 (1.96-9.15); NEUTROPHILS PERCENT AUTO 60 % (41-73); Platelet Count 52 K/mm3 (150-400); RDW Coefficient Variation 17.8 % (11.7-14.2); RDW Standard Deviation 61.4 fL (35.1-46.3); Red Blood Cell Count 2.81 M/mm3 (3.80-5.20); White Blood Cell Count 3.74 K/mm3 (4.00-11.30)
[2023-05-28 07:20] LABS: Albumin/Globulin Ratio 0.5 (0.8-1.8); Bilirubin, Total 1.5 mg/dL (0.1-1.0); Bun/Creatinine Ratio 25.3 (12.0-20.0); Calcium, Blood 7.9 mg/dL (8.5-10.1); Creatinine, Blood 1.94 mg/dL (0.40-1.00); Globulin, Blood 4.4 g/dL (2.2-4.0); Potassium, Blood 4.4 mmol/L (3.5-5.5); Total Protein, Blood 6.4 g/dL (6.4-8.2)
[2023-05-28 07:29] VITALS: BP 83/57
[2023-05-28 08:26] VITALS: BP 91/54
[2023-05-28 16:32] VITALS: BP 99/70
--- NOTE | 2023-05-28 17:55 | NUR ---
SHIFT SUMMARY PT AOX4, INDEPENDENT IN THE ROOM. C/O PAIN THIS SHIFT, MEDICATED PER THE EMAR. HAD A OLDER GENTLEMENT FRIEND VISIT TODAY. SHE TOLD ME SHE WANTED TO SHOWER SO SHE WAS LEFT ALONE TO DO SO. MRI CALLED ABOUT COMING TO PICK HER UP SO THIS NURSE WENT TO HER ROOM. SHE WAS NOT IN THE ROOM. THIS NURSE SEARCHED THE FLOOR AND THE FRONT OF THE BUILDING BUT WITH NO SIGN OF HER. SHE RETURNED THIS NURSE WAS GOING TO LOOK ON THE NORTH SIDE BUT SHE HAD RETURNED BY WHEELCHAIR, BEING PUSHED BY HER OLDER GENTLEMENT FRIEND. THIS NURSE DISCUSSED THE IMPORTANCE OF NOT LEAVING THE FLOOR WITH THE PRIORITY BEING HER SAFETY. THERE WAS A SCENT OF WHAT MAY HAVE BEEN MARIJUANA. THIS NURSE ASKED HER AND SHE DENIED USING MARIJUANA. PT AGREED TO NOT LEAVE THE FLOOR AND IF THE ISSUES WAS SMOKING CESSATION, THAT A NICOTINE PATCH WAS AVAILABLE. PT DENIED NEEDING A NICOTINE PATCH. SHE HAS NOT LEFT THE FLOOR SINCE. NO OTHER ACUTE CHANGES. FIRE SAFETY PROCEDURES AND PROTOCOLS DISCUSSED AND REINFORCED. PT DENIED HAVING AN IGNITION SOURCE. PT IS ON RA. CALL LIGHT WITHIN REACH, BED IN THE LOWEST POSITION. WILL REPORT TO ONCOMING NURSE.
[2023-05-28 20:41] VITALS: BP 101/51
[2023-05-29 03:59] VITALS: BP 90/55
--- NOTE | 2023-05-29 04:02 | NUR ---
SHIFT SUMMARY ADMITTED FOR CELLULITIS LEFT FOOT. FULL CODE. PLAN IS FOR PODIATRY CONSULT DR. LUZ SURGICAL INTERVENTION ON TUESDAY. NS INFUSING ORDERED. BP'S ARE SOFT. REGULAR DIET. IV ANTIB RX ARE SCHEDULED. MEDICATED FOR PAIN THIS SHIFT.
[2023-05-29 06:04] LABS: Bun/Creatinine Ratio 31.6 (12.0-20.0); Calcium, Blood 7.7 mg/dL (8.5-10.1); Creatinine, Blood 1.14 mg/dL (0.40-1.00); Potassium, Blood 4.3 mmol/L (3.5-5.5)
[2023-05-29 07:51] VITALS: BP 91/53
[2023-05-29 16:23] VITALS: BP 97/56
--- NOTE | 2023-05-29 17:15 | NUR ---
SHIFT SUMMARY PT AOX4, INDEPENDENT IN THE ROOM. RESTING IN BED ALL DAY. C/O PAIN AND MEDICATED PER THE EMAR. PT HAS HAD A FRIEND AT THE BS MOST OF THE AFTERNOON. SHE IS TO GO NPO AT MIDNIGHT TONIGHT FOR POSSIBLE SURGERY TOMORROW. FIRE SAFETY PROTOCOLS AND PROCEDURES MAINTAINED T/O THE SHIFT. CALL LIGHT WITHIN REACH, BED IN THE LOWEST POSITION. WILL REPORT TO ONCOMING NURSE.
[2023-05-29 19:45] VITALS: BP 102/67
[2023-05-30] VITALS (15 sets, daily range): BP systolic 87–105; BP diastolic 46–68
--- NOTE | 2023-05-30 05:16 | NUR ---
INDEPENDENT TO TOILET, COMPLAINS OF LLE PAIN AND SWELLING. NPO FOR POTENTIAL SURGERY TODAY. VSS ON RA, NO ACUTE CHANGES NOTED. FIRE SAFETY REVIEWED. PT REQUESTS TO SPEAK WITH SURGEON PRIOR TO PROCEDURE, REASSURED PT THAT SHE WILL HAVE THAT OPPORTUNITY PRIOR TO ANY SURGICAL INTERVENTION.
[2023-05-30 05:45] LABS: BASOPHILS ABSOLUTE AUTO 0.01 K/mm3 (0.00-0.23); BASOPHILS PERCENT AUTO 0 % (0-2); EOSINOPHILS ABSOLUTE AUTO 0.13 K/mm3 (0.00-0.68); EOSINOPHILS PERCENT AUTO 5 % (0-6); Hemoglobin 7.2 g/dL (11.5-16.0); IMMATURE GRAN ABSOLUTE AUTO 0.01 K/mm3 (0.00-0.10); IMMATURE GRAN PERCENT AUTO 0 % (0-1); LYMPHOCYTES ABSOLUTE AUTO 0.77 K/mm3 (0.84-5.20); LYMPHOCYTES PERCENT AUTO 28 % (21-46); MONOCYTES PERCENT AUTO 11 % (4-13); Mean Corpuscular HGB 31.6 pg (26.0-34.0); Mean Corpuscular HGB Conc 32.7 g/dL (31.5-36.5); Mean Corpuscular Volume 97 fL (80-100); Mean Platelet Volume 12.3 fL (9.1-12.4); NEUTROPHILS ABSOLUTE AUTO 1.49 K/mm3 (1.96-9.15); NEUTROPHILS PERCENT AUTO 55 % (41-73); RDW Coefficient Variation 17.7 % (11.7-14.2); RDW Standard Deviation 62.5 fL (35.1-46.3); Red Blood Cell Count 2.28 M/mm3 (3.80-5.20); White Blood Cell Count 2.71 K/mm3 (4.00-11.30)
[2023-05-30 05:53] LABS: Platelet Count 46 K/mm3 (150-400)
[2023-05-30 06:09] LABS: Albumin, Blood 1.9 g/dL (3.4-5.0); Albumin/Globulin Ratio 0.5 (0.8-1.8); Bilirubin, Total 0.8 mg/dL (0.1-1.0); Bun/Creatinine Ratio 25.2 (12.0-20.0); Calcium, Blood 7.7 mg/dL (8.5-10.1); Creatinine, Blood 0.75 mg/dL (0.40-1.00); Globulin, Blood 4.2 g/dL (2.2-4.0); Potassium, Blood 4.2 mmol/L (3.5-5.5); Total Protein, Blood 6.1 g/dL (6.4-8.2)
[2023-05-30 12:29] LABS: Hematocrit 23.5 % (33.0-51.0); Hemoglobin 7.7 g/dL (11.5-16.0)
--- NOTE | 2023-05-30 18:07 | NUR ---
SHIFT SUMMARY PT AOX4, INDEPENDENT IN THE ROOM. NPO AWAITING I AND D THIS SHIFT. PT CURRENTLY IN DAY SURGERY PREPING FOR PROCEDURE. MOTHER AT THE BS. PT IRRITATED THAT THE PROCEDURE TIME WAS CHANGED BUT DECIDED TO STAY. IV FLUIDS RUNNING T/O THE SHIFT. MEDICATED FOR PAIN PER THE EMAR. CALL LIGHT WITHIN REACH, BED IN THE LOWEST POSITION. WILL REPORT TO ONCOMING NURSE.
--- NOTE | 2023-05-30 19:19 | NUR ---
05/30/231918 Izzy Tyler PT ON SCHEDULED ANTIBIOTICS
--- NOTE | 2023-05-30 20:39 | NUR ---
ARRIVAL PT ARRIVED TO THE UNIT IN NO DISTRESS, A/OX4, ON RA. PT STATES PAIN IS 3/10, WHICH IS TOLLERABLE FOR HER. VSS. LEFT FOOT CIRCULTION INTACT, REPORTS SOME N/T BUT PT GOT NERVE BLOCK IN OR. NO BLEEDING NOTED
[2023-05-31] VITALS (10 sets, daily range): BP systolic 85–109; BP diastolic 46–63
--- NOTE | 2023-05-31 04:00 | NUR ---
SHIFT SUMMMARY POD1 I&D OF LEFT FOOT. DRESSING APPEARS C/D/I, SENSATION AND CIRCULATION REMAIN INTACT. BRISK CAP REFILL. ELEVATED ON PILLOWS. VSS, HYPOTENTION NOTED PER TREND. PT REMAINS ASYMPTOMATIC. PT TOLLERATING PO INTAKE, VOIDING W/O DIFFICLTY. UTILIZING BEDPAN AT THIS TIME. MEDICATED FOR PAIN WITH OXY AND TYLENOL WITH REASONABLE RESULTS, PT NOT UP TO TRYING ICE YET. PT DOZING ON AND OFF SINCE ARRIVING ON THE FLOOR. NO ACUTE EVENTS NOTED. PLAN FOR CONTINUING IV ABX AND CULTURE RESULTS
[2023-05-31 04:24] LABS: BASOPHILS ABSOLUTE AUTO 0.01 K/mm3 (0.00-0.23); BASOPHILS PERCENT AUTO 0 % (0-2); EOSINOPHILS PERCENT AUTO 4 % (0-6); Hematocrit 22.1 % (33.0-51.0); Hemoglobin 7.2 g/dL (11.5-16.0); IMMATURE GRAN PERCENT AUTO 0 % (0-1); LYMPHOCYTES ABSOLUTE AUTO 0.65 K/mm3 (0.84-5.20); LYMPHOCYTES PERCENT AUTO 25 % (21-46); MONOCYTES ABSOLUTE AUTO 0.34 K/mm3 (0.16-1.47); MONOCYTES PERCENT AUTO 13 % (4-13); Mean Corpuscular HGB 31.4 pg (26.0-34.0); Mean Corpuscular HGB Conc 32.6 g/dL (31.5-36.5); Mean Corpuscular Volume 97 fL (80-100); Mean Platelet Volume 11.1 fL (9.1-12.4); NEUTROPHILS ABSOLUTE AUTO 1.46 K/mm3 (1.96-9.15); NEUTROPHILS PERCENT AUTO 57 % (41-73); RDW Standard Deviation 64.6 fL (35.1-46.3); Red Blood Cell Count 2.29 M/mm3 (3.80-5.20); White Blood Cell Count 2.56 K/mm3 (4.00-11.30)
[2023-05-31 04:36] LABS: Platelet Count 48 K/mm3 (150-400)
[2023-05-31 04:50] LABS: Albumin, Blood 1.8 g/dL (3.4-5.0); Albumin/Globulin Ratio 0.4 (0.8-1.8); Bilirubin, Total 1.3 mg/dL (0.1-1.0); Bun/Creatinine Ratio 18.7 (12.0-20.0); Calcium, Blood 7.8 mg/dL (8.5-10.1); Creatinine, Blood 0.8 mg/dL (0.40-1.00); Globulin, Blood 4.2 g/dL (2.2-4.0); Potassium, Blood 4.1 mmol/L (3.5-5.5)
--- NOTE | 2023-05-31 14:48 | NUR ---
Pt. is awake in bed when she welcomes my visit. Pt. is pleasant. Facilitate a life review and Pt. becomes very transparent about the trajectory of her life. With supportive listening and empathy, Pt. displays evidence of trust and rapport is established. Considered matters of kenneth and belief, and some pastoral counseling is provided. Pt. displays evidence of receiving pastoral encouragement. This clay structure builder and servicer provided resources regarding recovery. Pt. verbally requested a bible and one is provided. Prayed with Pt. Pt. verbalized gratitude for the spiritual care visit and welcomed this clay structure builder and servicer to return.
--- NOTE | 2023-05-31 14:53 | NUR ---
PHYSICAL THERAPY REPORTS THAT PATIENT WAS IN BATHROOM WITHOUT HER WALKER UPON HIM ENTERING ROOM. PT HAS BEEN EDUCATED AND IS AWARE OF PARTIAL WEIGHT BEARING STATUS AND HAS BEEN EDUCATED ON IMPORTANCE OF CALLING BEFORE GETTING OUT OF BED. CALL LIGHT REMAINS IN REACH.
--- NOTE | 2023-05-31 16:41 | NUR ---
SHIFT SUMMARY POD 1 I&D L FOOT DRESSING REMAINS CDI, PT PAIN CONTROLLED PER EMAR. SHE HAS BEEN SITTING UP AND CONVERSING WITH GUESTS IN ROOM. IV ABX INFUSING PER EMAR. PT WORKED WITH PT/OT TODAY. PT UP TO COMMODE WITH FWW AND 1 ASSIST. RE-EDUCATED ON IMPORTANCE OF MAINTAINING HER PARTIAL WEIGHT BEARING STATUS AND USING WALKER WITH AMBULATION. PLAN WILL BE TO CONTINUE DRESSING CHANGES AND RECIEVE ABX.
[2023-06-01 04:10] VITALS: BP 92/47
[2023-06-01 04:27] LABS: BASOPHILS ABSOLUTE AUTO 0.01 K/mm3 (0.00-0.23); BASOPHILS PERCENT AUTO 0 % (0-2); EOSINOPHILS ABSOLUTE AUTO 0.12 K/mm3 (0.00-0.68); EOSINOPHILS PERCENT AUTO 5 % (0-6); Hematocrit 22.7 % (33.0-51.0); Hemoglobin 7.4 g/dL (11.5-16.0); IMMATURE GRAN ABSOLUTE AUTO 0.01 K/mm3 (0.00-0.10); IMMATURE GRAN PERCENT AUTO 0 % (0-1); LYMPHOCYTES PERCENT AUTO 28 % (21-46); MONOCYTES ABSOLUTE AUTO 0.26 K/mm3 (0.16-1.47); MONOCYTES PERCENT AUTO 10 % (4-13); Mean Corpuscular HGB 31.4 pg (26.0-34.0); Mean Corpuscular HGB Conc 32.6 g/dL (31.5-36.5); Mean Corpuscular Volume 96 fL (80-100); Mean Platelet Volume 9.8 fL (9.1-12.4); NEUTROPHILS ABSOLUTE AUTO 1.45 K/mm3 (1.96-9.15); NEUTROPHILS PERCENT AUTO 57 % (41-73); RDW Coefficient Variation 18.1 % (11.7-14.2); RDW Standard Deviation 63.5 fL (35.1-46.3); Red Blood Cell Count 2.36 M/mm3 (3.80-5.20); White Blood Cell Count 2.55 K/mm3 (4.00-11.30)
[2023-06-01 04:53] LABS: Platelet Count 49 K/mm3 (150-400)
[2023-06-01 05:13] LABS: Calcium, Blood 7.9 mg/dL (8.5-10.1); Creatinine, Blood 0.76 mg/dL (0.40-1.00); Potassium, Blood 4.4 mmol/L (3.5-5.5)
--- NOTE | 2023-06-01 05:13 | NUR ---
SHIFT SUMMARY POD2 I&D OF LEFT FOOT. SENSATION AND CIRCULATION REAMINS INTACT. DRESSING APPEARS C/D/I, PT REFUSED DRESSING CHANGE T/O THE NIGHT, REPORTING IT WOULD BE TOO PAINFUL. PT EDUCATED ABOUT INCREASED INFECTION RISK DUE TO LEAVING BACTERIA ON PRESENT DRESSING. PT ALSO EDUCATED ABOUT MAINTAINING PARTIAL WEIGHT BEARING STATUS, AND CONSEQUENCES OF NOT ALLOWING HER FOOT PROPER TIME TO HEAL. PT APPEARS RECEPTIVE BUT WOULD NOT ALLOW DRESSING CHANGE. PT MEDICATED T/O THE NIGHT WITH OXY, THIS APPEARS TO MAKE THE PT GROGGY AND SHE SLEEPS WELL AFTER ADMINISTRATION. PT REPORTS ONGOING 10/10 PAIN AND REQUESTS A HIGHER DOSE OF PAIN MEDICATION OR IV PAIN MEDICATION. PT REFUSING TO UTILIZE NON NARCOTIC PAIN RELIEF T/O THE NIGHT, SUCH TYLENOL OR COLD THERAPY. NOTED THAT PT HAS GENERALIZED EDEMA, PT REPORTS FEELING PUFFY AND SWOLLEN. PT REPORTS SHE WAS GOING TO TAKE HER DIURETICS THAT SHE HAS IN HER BAG BUT ULTIMATELY DECIDED AGAINST IT. PT EDUCATED ABOUT THE DANGERS OF TAKING MEDICATION NOT ADMINISTERED BY STAFF OR ORDERED BY HOSPITALIST. VSS, HYPOTENTION NOTED. PT REMAINS ASYMPTOMATIC. PLAN TO CONTINUE IV ABX AND WORK WITH THERAPY
[2023-06-01 07:14] VITALS: BP 94/53
[2023-06-01 10:36] LABS: Free Thyroxine 1.52 ng/dL (0.70-1.60)
[2023-06-01 10:38] LABS: Triiodothyronine, Free 1.72 pg/mL (2.18-3.98)
--- NOTE | 2023-06-01 14:08 | NUR ---
WOUND CARE NOTE THIS NURSE MEDICATED PT FOR WOUND DRESSING CHANGE AT APPROX 1145, APPROX. 30 MIN LATER THIS NURSE WENT INTO PT ROOM TO CHANGE DRESSING AND PT WAS TEARFUL AND APPEARED TO BE SHAKING STATING "I DON'T THINK I CAN DO THIS." THIS RN REPORTED TO DR. CEDENO AND PT WAS MEDICATED FOR ANXIETY PER EMAR ORDERS. AT APPROX 1310 THIS NURSE PERFORMED WOUND CARE/DRESSING CHANGE PER EMAR ORDERS. PT WAS TEARFUL AND CRYING OUT STATING "THAT'S ENOUGH THAT'S ENOUGH," AND "OH GOD," WELL OTHER PROFANITIES. SHE DID NOT APPEAR TO TOLERATE THE DRESSING CHANGE WELL AND NEEDED MUCH ENCOURAGEMENT IN DEEP BREATHING. PT IS NOW WORKING W/ PHYSICAL THERAPIST.
[2023-06-01 15:26] VITALS: BP 95/54
--- NOTE | 2023-06-01 18:13 | NUR ---
SHIFT SUMMARY PT IS ALERT AND ORIENTED X 4, SHE APPEARED ANXIOUS AT TIMES INCLUDING DURING DRESSING CHANGE ON L FOOT. BP NOTED TO BE SOFT W/ SBP IN 90'S, MIDODRINE ADDED TO EMAR TODAY PER DR. CEDENO. HR STABLE, SPO2 MAINAINED >95% VIA RA, PT REPORTED FEELING SOB AND STATED THAT SOB IS IMPROVED WHEN ON HOME FUROSAMIDE MEDICATION, THIS WAS DISCUSSED W/ DR. CEDENO. PLEASE SEE PREVIOUS NOTE REGARDING DRESSING CHANGE ON L FOOT. SHE HAS DENIED FEELINGS OF CHEST PAIN/PRESSURE, PLEASE SEE EMAR REGARDING PAIN MANAGEMENT IN L FOOT. SHE HAS USED BEDSIDE COMMODE TO VOID DURING SHIFT, BOWEL CARE PROVIDED PER EMAR ORDERS. IV IS CURRENTLY INFUSING ABX MEDICATION PER EMAR. SHE HAS DENIED FEELINGS OF DIZZINESS/LIGHTHEADEDNESS BUT REPORTED NAUSEA DURING DRESSING CHANGE. WILL CONTINUE TO MONITOR UNTIL REPORT GIVEN. CALL LIGHT W/IN REACH.
[2023-06-01 19:19] VITALS: BP 98/59
[2023-06-02 04:47] LABS: BASOPHILS ABSOLUTE AUTO 0.01 K/mm3 (0.00-0.23); BASOPHILS PERCENT AUTO 1 % (0-2); EOSINOPHILS ABSOLUTE AUTO 0.12 K/mm3 (0.00-0.68); EOSINOPHILS PERCENT AUTO 6 % (0-6); Hematocrit 22.5 % (33.0-51.0); Hemoglobin 7.2 g/dL (11.5-16.0); IMMATURE GRAN ABSOLUTE AUTO 0.01 K/mm3 (0.00-0.10); IMMATURE GRAN PERCENT AUTO 1 % (0-1); LYMPHOCYTES ABSOLUTE AUTO 0.59 K/mm3 (0.84-5.20); LYMPHOCYTES PERCENT AUTO 27 % (21-46); MONOCYTES ABSOLUTE AUTO 0.27 K/mm3 (0.16-1.47); MONOCYTES PERCENT AUTO 12 % (4-13); Mean Corpuscular HGB 30.9 pg (26.0-34.0); Mean Corpuscular Volume 97 fL (80-100); Mean Platelet Volume 10.7 fL (9.1-12.4); NEUTROPHILS ABSOLUTE AUTO 1.19 K/mm3 (1.96-9.15); NEUTROPHILS PERCENT AUTO 54 % (41-73); RDW Coefficient Variation 18.2 % (11.7-14.2); RDW Standard Deviation 63.9 fL (35.1-46.3); Red Blood Cell Count 2.33 M/mm3 (3.80-5.20); White Blood Cell Count 2.19 K/mm3 (4.00-11.30)
--- NOTE | 2023-06-02 04:48 | NUR ---
SHIFT SUMMARY NO ACUTE CHANGES TO REPORT OVERNIGHT, PT HAS RESTED MOST THE NIGHT. R FOOT DRESSING C/D/I. IV ANTIBIOTICS CONTINUED. PT INDEPENDENT IN ROOM MOSTLY. PT AWARE OF WEIGHT BEARING PRECAUTIONS. MAKES NEEDS KNOWN. VITALS STABLE. BED IN LOWEST POSITION, CALL LIGHT WITHIN REACH.
[2023-06-02 05:04] LABS: Platelet Count 49 K/mm3 (150-400)
[2023-06-02 05:05] LABS: Bun/Creatinine Ratio 15.9 (12.0-20.0); Calcium, Blood 7.7 mg/dL (8.5-10.1); Creatinine, Blood 0.69 mg/dL (0.40-1.00); Potassium, Blood 4.1 mmol/L (3.5-5.5)
[2023-06-02 06:15] VITALS: BP 93/53
[2023-06-02 07:09] VITALS: BP 87/54
[2023-06-02 10:46] VITALS: BP 99/48
[2023-06-02] MEDS ORDERED: MASOPHEN325 MG PO (13:21)
[2023-06-02] MEDS ORDERED: DOCU100 PO (13:22)
[2023-06-02] MEDS ORDERED: MIDO5 PO (13:23)
[2023-06-02] MEDS ORDERED: OXYC5 PO (13:26)
[2023-06-02] MEDS ORDERED: OXAYDO5 M1 PO (13:28)
[2023-06-02] MEDS ORDERED: SENN187 PO (13:28)
[2023-06-02] MEDS ORDERED: VISBIOME 112.51 EACH PO (13:29)
[2023-06-02] MEDS ORDERED: LEVFLO500 PO (13:30)
--- NOTE | 2023-06-02 15:43 | NUR ---
DISCHARGE SUMMARY PT A&OX4, VSS/RA, TRACEY PO, VOIDING, AMB SBA FWW 50% WB, PAIN MANAGED, IV DC'D. DC INS PROVIDED. PT REP UNDERSTANDING THOSE INSTRUCTIONS. LEFT FLOOR VIA WC WITH ALL PERSONAL POSSESSIONS INCLUDING DC PACKET AND 1 NARC SCRIPT, TO GO HOME WITH AUTO AIR CONDITIONING APPRENTICE/FRIEND.
== END 2023-06-02 15:00 | disposition home health service (06) | DRG 854 ==
LOC: ER 08:45 → MEDS 12:36 → SURS 05-30 20:17
PROVIDERS: Physician Assistant; ADMIT Internal Medicine
PROC: 3E03329 Introduction of Other Anti-infective into Peripheral Vein, Percutaneous Approach (ICD-10-PCS; 2023-05-27)
PROC: 30233N1 Transfusion of Nonautologous Red Blood Cells into Peripheral Vein, Percutaneous Approach (ICD-10-PCS; 2023-05-30)
PROC: 0QBP0ZX Excision of Left Metatarsal, Open Approach, Diagnostic (ICD-10-PCS; principal; 2023-05-31)
PROC: 0JCR0ZZ Extirpation of Matter from Left Foot Subcutaneous Tissue and Fascia, Open Approach (ICD-10-PCS; 2023-05-31)
PROC: 0J9R0ZZ Drainage of Left Foot Subcutaneous Tissue and Fascia, Open Approach (ICD-10-PCS; 2023-05-31)
DX: A41.9 Sepsis, unspecified organism (principal); D61.818 Other pancytopenia; L03.116 Cellulitis of left lower limb; N17.9 Acute kidney failure, unspecified; L02.612 Cutaneous abscess of left foot; M86.8X7 Other osteomyelitis, ankle and foot; F11.90 Opioid use, unspecified, uncomplicated; B18.2 Chronic viral hepatitis C; F41.9 Anxiety disorder, unspecified; M79.7 Fibromyalgia; E86.0 Dehydration; K74.60 Unspecified cirrhosis of liver; F17.210 Nicotine dependence, cigarettes, uncomplicated; G89.4 Chronic pain syndrome; F10.11 Alcohol abuse, in remission; F90.9 Attention-deficit hyperactivity disorder, unspecified type; Z79.899 Other long term (current) drug therapy; Z87.442 Personal history of urinary calculi; Z98.890 Other specified postprocedural states
CPT/HCPCS: 36415; 73720; 76705; 80048; 80053; 81025; 84439; 84481; 85014; 85018; 85025; 85651; 86140; 86850; 86900; 86901; 87071; 87075; 87205; 93306; 94760; 97116; 97162; 97166; 97530; 97535; 99285; A9270; A9579; J1885; J2001; J2250; J2543; J2704; J3010; J7030; J7050; J7120; Q0177

== ENCOUNTER → 2024-06-06 | Outpatient (CLI) | payer OTHER ==
[~2024-06-06] MED LIST changes: +LEVFLO500 PO; +MASOPHEN325 MG PO; +MAVYRET 100-401 EAC1 PO; +MIDO5 PO; +OXAYDO5 M1 PO; +SENN187 PO; +VISBIOME 112.51 EACH PO; +[UNRECOGNIZED DRUG - CODE] PO
[2024-06-15 14:38] LABS: HPV HIGH RISK BY TMA Not Detected; HPV SOURCE Cervical
== END ==
LOC: LAB 18:00 → LAB SHORT 18:00
PROVIDERS: Family Medicine
DX: Z12.4 Encounter for screening for malignant neoplasm of cervix (principal)
CPT/HCPCS: 87624; G0123

== ENCOUNTER 2024-08-31 01:01 | Day surgery (SDC) | payer OTHER ==
[~2024-08-31 01:01] MED LIST changes: +Adipex-P37.5 M1 PO; -MIDO5 PO; +Midodrine HCl2.5 MG PO; +PERCOCET 10-321 EA13 PO; +RAMELTEON8 MG PO; +TOPI25 PO; +ZOLPIDEM TARTRA10 MG PO
[2024-08-31] MEDS ORDERED: Lidocaine HCl 4% Cream 5 GM ONE (09:53)
== END 2024-08-31 23:00 | disposition home or self-care (01) ==
LOC: WOUND 01:01
DX: S41.001D Unspecified open wound of right shoulder, subsequent encounter (principal); B95.62 Methicillin resistant Staphylococcus aureus infection as the cause of diseases classified elsewhere
CPT/HCPCS: A6213; A9270; G0463

== ENCOUNTER 2024-09-03 02:43 | Day surgery (SDC) | payer OTHER | END 2024-09-03 23:02 | disposition home or self-care (01) | LOC: WOUND 02:43 | DX: T81.31XD Disruption of external operation (surgical) wound, not elsewhere classified, subsequent encounter (principal) | CPT/HCPCS: G0463 ==

== ENCOUNTER 2024-09-05 01:12 | Day surgery (SDC) | payer OTHER ==
[2024-09-05] MEDS ORDERED: Lidocaine HCl 4% Cream 5 GM ONE (11:39)
== END 2024-09-05 22:50 | disposition home or self-care (01) ==
LOC: WOUND 01:12
DX: T81.31XD Disruption of external operation (surgical) wound, not elsewhere classified, subsequent encounter (principal); Y83.8 Other surgical procedures as the cause of abnormal reaction of the patient, or of later complication, without mention of misadventure at the time of the procedure
CPT/HCPCS: A9270; G0463

== ENCOUNTER 2024-09-12 03:31 | Day surgery (SDC) | payer OTHER | END 2024-09-12 23:00 | disposition home or self-care (01) | LOC: WOUND 03:31 | DX: T81.31XD Disruption of external operation (surgical) wound, not elsewhere classified, subsequent encounter (principal) | CPT/HCPCS: G0463 ==

== ENCOUNTER 2024-09-18 09:44 | Day surgery (SDC) | payer OTHER ==
[~2024-09-18] VITALS: Ht 154.9 cm; Wt 84.2 kg
[~2024-09-18 09:44] MED LIST changes: +Lactated Ringer's 1,000 ML IV ONE
[2024-09-18] MEDS ORDERED: Benzocaine Oral Spray 0.5ML UD ONE (10:54)
[2024-09-18] MEDS ORDERED: propofoL 50 ML IV ONE (10:57)
[2024-09-18] MEDS ORDERED: Lactated Ringer's 1,000 ML IV ONE (10:58)
--- NOTE | 2024-09-18 11:40 | NUR ---
09/18/24 1140 AAKASH BOWERS PT IV OCCLUTED NEW IV STARTED W/ TWO MORE UNSUCCESSFUL IV ATTEMPTS BY DR ALDEN MARROQUIN AND RN KILO HALE WAS SUCCESSFUL ON THE LAST IV IN LEFT HAND IS PATENT. PATIENT IS TOLERATING WELL.
[2024-09-18 12:10] VITALS: BP 111/71
== END 2024-09-18 12:10 | disposition home or self-care (01) ==
LOC: ORSCSDS 09:44
PROVIDERS: Internal Medicine Gastroenterology
PROC: 0DJ08ZZ Inspection of Upper Intestinal Tract, Via Natural or Artificial Opening Endoscopic (ICD-10-PCS; principal; 2024-09-18 11:15)
DX: K74.60 Unspecified cirrhosis of liver (principal); I85.10 Secondary esophageal varices without bleeding; K76.6 Portal hypertension; K31.89 Other diseases of stomach and duodenum; I50.9 Heart failure, unspecified; E66.01 Morbid (severe) obesity due to excess calories; Z68.35 Body mass index [BMI] 35.0-35.9, adult; Z86.19 Personal history of other infectious and parasitic diseases; Z86.718 Personal history of other venous thrombosis and embolism; F19.11 Other psychoactive substance abuse, in remission; Z86.711 Personal history of pulmonary embolism; Z79.899 Other long term (current) drug therapy; F17.210 Nicotine dependence, cigarettes, uncomplicated
CPT/HCPCS: A9270; J2704; J7120

== ENCOUNTER → 2025-03-03 | Outpatient (CLI) | payer OTHER ==
[~2025-03-03] MED LIST changes: -Lactated Ringer's 1,000 ML IV ONE
[2025-03-03 14:29] LABS: BASOPHILS ABSOLUTE AUTO 0.02 K/mm3 (0.00-0.23); BASOPHILS PERCENT AUTO 1 % (0-2); EOSINOPHILS ABSOLUTE AUTO 0.17 K/mm3 (0.00-0.68); EOSINOPHILS PERCENT AUTO 4 % (0-6); Hematocrit 35.9 % (33.0-51.0); Hemoglobin 12.4 g/dL (11.5-16.0); IMMATURE GRAN ABSOLUTE AUTO 0.01 K/mm3 (0.00-0.10); IMMATURE GRAN PERCENT AUTO 0 % (0-1); LYMPHOCYTES ABSOLUTE AUTO 0.78 K/mm3 (0.84-5.20); LYMPHOCYTES PERCENT AUTO 20 % (21-46); MONOCYTES ABSOLUTE AUTO 0.32 K/mm3 (0.16-1.47); MONOCYTES PERCENT AUTO 8 % (4-13); Mean Corpuscular HGB 32.9 pg (26.0-34.0); Mean Corpuscular HGB Conc 34.5 g/dL (31.5-36.5); Mean Corpuscular Volume 95 fL (80-100); Mean Platelet Volume 10.1 fL (9.1-12.4); NEUTROPHILS ABSOLUTE AUTO 2.54 K/mm3 (1.96-9.15); NEUTROPHILS PERCENT AUTO 66 % (41-73); Platelet Count 65 K/mm3 (150-400); RDW Coefficient Variation 13.7 % (11.7-14.2); RDW Standard Deviation 47.7 fL (35.1-46.3); Red Blood Cell Count 3.77 M/mm3 (3.80-5.20); White Blood Cell Count 3.84 K/mm3 (4.00-11.30)
[2025-03-03 14:35] LABS: Albumin, Blood 3.5 g/dL (3.4-5.0); Albumin/Globulin Ratio 0.9 (0.8-1.8); Bilirubin, Total 0.8 mg/dL (0.1-1.0); Bun/Creatinine Ratio 17.5 (12.0-20.0); Calcium, Blood 8.8 mg/dL (8.5-10.1); Creatinine, Blood 0.8 mg/dL (0.40-1.00); Total Protein, Blood 7.5 g/dL (6.4-8.2)
== END | disposition home or self-care (01) ==
LOC: LAB 14:20 → LAB SHORT 14:20
PROVIDERS: Emergency Medicine
DX: R10.9 Unspecified abdominal pain (principal)
CPT/HCPCS: 80053; 85025

== ENCOUNTER → 2025-06-24 | Outpatient (CLI) | payer OTHER ==
[2025-06-24 12:42] LABS: BASOPHILS ABSOLUTE AUTO 0.02 K/mm3 (0.00-0.23); BASOPHILS PERCENT AUTO 1 % (0-2); EOSINOPHILS ABSOLUTE AUTO 0.14 K/mm3 (0.00-0.68); EOSINOPHILS PERCENT AUTO 4 % (0-6); Hematocrit 32.5 % (33.0-51.0); Hemoglobin 11.3 g/dL (11.5-16.0); IMMATURE GRAN ABSOLUTE AUTO 0.02 K/mm3 (0.00-0.10); IMMATURE GRAN PERCENT AUTO 1 % (0-1); LYMPHOCYTES ABSOLUTE AUTO 0.46 K/mm3 (0.84-5.20); LYMPHOCYTES PERCENT AUTO 14 % (21-46); MONOCYTES ABSOLUTE AUTO 0.33 K/mm3 (0.16-1.47); MONOCYTES PERCENT AUTO 10 % (4-13); Mean Corpuscular HGB Conc 34.8 g/dL (31.5-36.5); Mean Corpuscular Volume 97 fL (80-100); NEUTROPHILS ABSOLUTE AUTO 2.36 K/mm3 (1.96-9.15); NEUTROPHILS PERCENT AUTO 71 % (41-73); NRBC ABSOLUTE 0.00 K/mm3 (0.00-0.02); NRBC Auto 0.0 /100 WBC (0.0-0.2); Platelet Count 63 K/mm3 (150-400); RDW Coefficient Variation 13.6 % (11.7-14.2); RDW Standard Deviation 48.2 fL (35.1-46.3)
[2025-06-24 12:55] LABS: Alanine Aminotransfer (ALT/SGP 26.0 U/L (12-78); Albumin, Blood 3.4 g/dL (3.4-5.0); Albumin/Globulin Ratio 0.8 (0.8-1.8); Anion Gap 11.0 mmol/L (3-11); Aspartate Aminotrans (AST/SGOT 29.0 U/L (12-37); Bilirubin, Total 1.1 mg/dL (0.1-1.0); Blood Urea Nitrogen 10.0 mg/dL (8-24); CO2, Blood 29.0 mmol/L (21-32); Calcium, Blood 8.6 mg/dL (8.5-10.1); Chloride, Blood 104.0 mmol/L (98-108); Creatinine, Blood 0.6 mg/dL (0.40-1.00); Globulin, Blood 4.1 g/dL (2.2-4.0); Glucose, Blood 103.0 mg/dL (70-99); Potassium, Blood 3.9 mmol/L (3.5-5.5); Sodium, Blood 140.0 mmol/L (136-145); Total Protein, Blood 7.5 g/dL (6.4-8.2); Uric Acid, Blood 3.8 mg/dL (2.6-6.0)
== END | disposition home or self-care (01) ==
LOC: LAB 12:29 → LAB SHORT 12:29
PROVIDERS: Chiropractor
DX: M25.432 Effusion, left wrist (principal)
CPT/HCPCS: 80053; 84550; 85025